=== PATIENT | female | born 1995 | race Caucasian/White ===

== ENCOUNTER 2017-09-19 16:59 | Emergency (ER) | payer MEDICAID, OTHER ==
[2017-09-19 17:04] VITALS: BP 135/87; PULSE 105; RESP 16; TEMP 98.2; O2SAT 100
[2017-09-19] MEDS ORDERED: Sodium Chloride 0.9% 1,000 ML IV STA (18:07)
[2017-09-19 18:45] LABS: ALB/GLOB RATIO 1.2 (1.0-2.1); ALBUMIN 4.3 g/dL (3.5-5.0); ALT/SGPT 42 U/L (9-52); AST/SGOT 41 U/L (14-36); BLOOD UREA NITROGEN 9 mg/dl (7-17); CALCIUM 8.8 mg/dL (8.4-10.2); GFR AFRICAN-AMERICAN > 60; GFR NON-AFRICAN AMERICAN > 60; LIPASE 103 U/L (23-300)
[2017-09-19 18:46] LABS: BASO % 0.4 % (0.0-2.0); EOS # 0.1 K/uL (0.0-0.7); EOS % 1.3 % (0.0-4.0); HEMOGLOBIN 13.6 g/dL (12.0-16.0); LYMPH # 1.4 K/uL (1.0-4.3); MEAN CELL VOLUME 89.1 fl (81.0-99.0); MEAN CORPUSCULAR HEMOGLOBIN 28.9 pg (27.0-31.0); MEAN CORPUSCULAR HGB CONC 32.4 g/dL (33.0-37.0); MEAN PLATELET VOLUME 9.3 fl (7.2-11.7); MONO # 0.5 K/uL (0.0-0.8); MONO % 7.9 % (0.0-10.0); NEUT # 4.3 K/uL (1.8-7.0); NEUT % 67.4 % (50.0-75.0); RBC 4.7 Mil/uL (3.80-5.20); RED CELL DISTRIBUTION WIDTH 13.5 % (11.5-14.5); WHITE BLOOD COUNT 6.3 K/uL (4.8-10.8)
[2017-09-19] MEDS ORDERED: Potassium Chloride 10 mEq ER Tab PO ONE (18:50)
--- NOTE | 2017-09-19 18:52 | ED PDOC ---
HPI: Abdomen Time Seen by Provider: 09/19/17 17:47 Chief Complaint (Nursing): Abdominal Pain Chief Complaint (Provider): adbominal pain History Per: Patient History/Exam Limitations: no limitations Onset/Duration Of Symptoms: Hrs (1hr [employer]) Outside of [place] travel?: No Current Symptoms Are (Timing): Better Associated Symptoms: Nausea, Back Pain. denies: Fever, Chills, Diarrhea, Loss Of Appetite, Chest Pain, Constipation, Urinary Symptoms Last Bowel Movement: Today Past Medical History Reviewed: Historical Data, Nursing Documentation, Vital Signs Vital Signs: Last Vital Signs Temp 98.2 F 09/19/17 17:02 Pulse 105 H 09/19/17 17:02 Resp 16 09/19/17 17:02 BP 135/87 09/19/17 17:02 Pulse Ox 100 09/19/17 18:52 - Medical History PMH: Personality Disorder - Surgical History Surgical History: Appendectomy, Cholecystectomy - Family History Family History: States: Unknown Family Hx - Home Medications Home Medications: Ambulatory Orders Medication Instructions Recorded Ibuprofen [Motrin] 600 mg PO Q6 PRN #15 tab 04/02/16 Famotidine [Pepcid] 20 mg PO BID #16 tab 09/19/17 Ondansetron [Zofran] 4 mg PO Q8H #12 tab 09/19/17 - Allergies Allergies/Adverse Reactions: Allergies Allergy/AdvReac Type Severity Reaction Status Date / Time No Known Allergies Allergy Verified 09/19/17 17:02 Review of Systems ROS Statement: Except As Marked, All Systems Reviewed And Found Negative Gastrointestinal: Positive for: Nausea, Vomiting, Abdominal Pain Physical Exam - Reviewed Nursing Documentation Reviewed: Yes Vital Signs Reviewed: Yes - Physical Exam Appears: Positive for: Non-toxic, No Acute Distress, Uncomfortable Head Exam: Positive for: ATRAUMATIC, NORMAL INSPECTION, NORMOCEPHALIC Skin: Positive for: Normal Color, Warm, DRY Eye Exam: Positive for: Normal appearance, EOMI, PERRL ENT: Positive for: Normal ENT Inspection Neck: Positive for: Normal, Painless ROM Cardiovascular/Chest: Positive for: Regular Rate, Rhythm Respiratory: Positive for: CNT, Normal Breath Sounds Gastrointestinal/Abdominal: Positive for: Bowel Sounds, Soft, Tenderness (mild tenderness noted to epigastric area) Back: Positive for: Normal Inspection Extremity: Positive for: Normal ROM Neurologic/Psych: Positive for: Alert, Oriented - Laboratory Results Result Diagrams: 09/19/17 18:00 09/19/17 18:00 - ECG O2 Sat by Pulse Oximetry: 100 - Progress ED Course And Treament: Pt with hx gallbladder removal. K+ low-Kdur ordered PT will be evaluated : Orders Category Date Time Status COMP METABOLIC PANEL Stat Chem 09/19/17 18:00 Completed LIPASE Stat Chem 09/19/17 18:00 Completed ED Urine (POC) Stat ED Care 09/19/17 18:18 Ordered CBC (WITH DIFFERENTIAL) Stat VITA 09/19/17 18:00 Received Famotidine [Pepcid] Med 09/19/17 18:21 Discontinued 20 mg .ROUTE .STK-MED ONE Famotidine [Pepcid] Med 09/19/17 18:07 Discontinued 20 mg IVP STAT STA Ondansetron [Zofran Inj] Med 09/19/17 18:21 Discontinued 4 mg .ROUTE .STK-MED ONE Ondansetron [Zofran Inj] Med 09/19/17 18:07 Discontinued 4 mg IVP STAT STA Potassium Chloride [Klor-Con 10] Med 09/19/17 18:50 Once 10 meq PO ONCE ONE Sodium Chloride 0.9% 1,000 ml Med 09/19/17 18:07 Active IV 1,000 mls/hr UA [URINALYSIS] Stat URINALYSIS 09/19/17 17:50 Received Medical Decision Making Medical Decision Making: pt with unremarkable labs,. symptoms improved. PT advised to have pmd f.u D/c on zofran and pepcid. Disposition - Clinical Impression Clinical Impression: Gastritis - Patient ED Disposition Is Patient to be Admitted: No Counseled Patient/Family Regarding: Studies Performed, Diagnosis, Need For Followup, Rx Given - Disposition Disposition: Routine/Home Disposition Time: 18:54 Condition: STABLE Prescriptions: Famotidine [Pepcid] 20 mg PO BID #16 tab Ondansetron [Zofran] 4 mg PO Q8H #12 tab Instructions: Gastritis (DC)
[2017-09-19 18:59] LABS: SQUAMOUS EPITHIAL 7 /hpf (0-5); URINE BILIRUBIN NEGATIVE (NEGATIVE); URINE BLOOD NEGATIVE (NEGATIVE); URINE CLARITY CLOUDY (Clear); URINE COLOR YELLOW (YELLOW); URINE GLUCOSE (UA) NEG (Normal); URINE LEUKOCYTE ESTERASE SMALL Leu/uL (Negative); URINE NITRATE NEGATIVE (NEGATIVE); URINE PROTEIN NEGATIVE (NEGATIVE)
== END 2017-09-19 19:10 | disposition home or self-care (01) ==
LOC: H.ER 16:59
DX: K29.70 Gastritis, unspecified, without bleeding (principal)
CPT/HCPCS: 80053; 81003; 81025; 83690; 85025; 96374; 96375; 99284; J2405; J7040

== ENCOUNTER 2018-08-15 16:14 | Emergency (ER) | payer MEDICAID, OTHER ==
[2018-08-15] MEDS ORDERED: Sodium Chloride 0.9% 1,000 ML IV STA (16:53)
--- NOTE | 2018-08-15 16:57 | ED PDOC ---
HPI: Abdomen Time Seen by Provider: 08/15/18 16:41 Chief Complaint (Nursing): Abdominal Pain Chief Complaint (Provider): Lower pelvic pain across History Per: Patient History/Exam Limitations: no limitations Onset/Duration Of Symptoms: Days (today) Additional Complaint(s): Abd pain lower across. Comes and goes. No vaginal bleeding. Has diarrhea occasionally nonbloody. No chest duffy, dyspnea, back pain, dysuria, fever. No nausea or vomit. Missed period for 1 week. Past Medical History Reviewed: Nursing Documentation, Vital Signs Vital Signs: Last Vital Signs Temp 98.7 F 08/15/18 16:41 Pulse 79 08/15/18 16:41 Resp 18 08/15/18 16:41 BP 113/67 08/15/18 16:41 Pulse Ox 100 08/15/18 16:41 - Medical History PMH: No Chronic Diseases - Surgical History Surgical History: Appendectomy, Cholecystectomy - Family History Family History: States: Unknown Family Hx - Living Arrangements Living Arrangements: With Family - Home Medications Home Medications: Ambulatory Orders Medication Instructions Recorded Ibuprofen [Motrin] 600 mg PO Q6 PRN #15 tab 04/02/16 Famotidine [Pepcid] 20 mg PO BID #16 tab 09/19/17 Ondansetron [Zofran] 4 mg PO Q8H #12 tab 09/19/17 - Allergies Allergies/Adverse Reactions: Allergies Allergy/AdvReac Type Severity Reaction Status Date / Time No Known Allergies Allergy Verified 08/15/18 16:38 Review of Systems ROS Statement: Except As Marked, All Systems Reviewed And Found Negative Gastrointestinal: Positive for: Abdominal Pain, Diarrhea Genitourinary Female: Positive for: Pelvic Pain Physical Exam - Reviewed Nursing Documentation Reviewed: Yes Vital Signs Reviewed: Yes - Physical Exam Appears: Positive for: Non-toxic, No Acute Distress Head Exam: Positive for: ATRAUMATIC, NORMAL INSPECTION, NORMOCEPHALIC Skin: Positive for: Normal Color, Warm, DRY Eye Exam: Positive for: EOMI, Normal appearance, PERRL ENT: Positive for: Normal ENT Inspection Neck: Positive for: Normal, Painless ROM Cardiovascular/Chest: Positive for: Regular Rate, Rhythm Respiratory: Positive for: CNT, Normal Breath Sounds Gastrointestinal/Abdominal: Positive for: Soft, Tenderness (mild across lower pelvis) Back: Positive for: Normal Inspection. Negative for: L CVA Tenderness, R CVA Tenderness Extremity: Positive for: Normal ROM Neurologic/Psych: Positive for: Alert, Oriented - Laboratory Results Result Diagrams: 08/15/18 17:12 08/15/18 17:12 Interpretation Of Abn Labs: bhcg elelvated - ECG O2 Sat by Pulse Oximetry: 100 - Progress ED Course And Treament: Five weeks 6 days live intrauterine gestation. Gestational concordance documented. 1908: Stable. AAOx3. Pain free. Tolerated PO. Fu with pcp. Disposition - Clinical Impression Clinical Impression: Abdominal pain during - Patient ED Disposition Is Patient to be Admitted: No Counseled Patient/Family Regarding: Studies Performed, Diagnosis, Need For Followup - Disposition [facility] - [facility]18 Disposition: Routine/Home Disposition Time: 19:10 Condition: STABLE Additional Instructions: Return if not better in 3 days. Instructions: Threatened Miscarriage
[2018-08-15 17:20] LABS: BASO # 0.1 K/uL (0.0-0.2); BASO % 0.7 % (0.0-2.0); EOS # 0.1 K/uL (0.0-0.7); HEMOGLOBIN 12.2 g/dL (12.0-16.0); LYMPH # 1.6 K/uL (1.0-4.3); MEAN CELL VOLUME 90.7 fl (81.0-99.0); MEAN CORPUSCULAR HEMOGLOBIN 30.6 pg (27.0-31.0); MEAN CORPUSCULAR HGB CONC 33.7 g/dL (33.0-37.0); MEAN PLATELET VOLUME 8.4 fl (7.2-11.7); MONO # 0.5 K/uL (0.0-0.8); MONO % 6.4 % (0.0-10.0); NEUT # 5.3 K/uL (1.8-7.0); NEUT % 70.9 % (50.0-75.0); RBC 3.98 Mil/uL (3.80-5.20); RED CELL DISTRIBUTION WIDTH 13.4 % (11.5-14.5); WHITE BLOOD COUNT 7.5 K/uL (4.8-10.8)
[2018-08-15 17:33] LABS: ALB/GLOB RATIO 1.1 (1.0-2.1); ALT/SGPT 30 U/L (9-52); AST/SGOT 24 U/L (14-36); BLOOD UREA NITROGEN 8 mg/dl (7-17); CALCIUM 9.4 mg/dL (8.4-10.2); GFR NON-AFRICAN AMERICAN > 60
--- NOTE | 2018-08-15 18:15 | US ---
Date of service: 08/15/2018 PROCEDURE: First trimester ultrasound HISTORY: and presenting with pain. COMPARISON: None TECHNIQUE: Standard protocol for this study/examination. FINDINGS: LMP: 06/29/2018 Prior examinations from the current : None TECHNIQUE: Real-time 2D imaging, duplex and color Doppler. FINDINGS: Cardiac activity: Present Rate: 111 BPM Measurements: [place] rump length: 0.32 cm Gestational age based on CRL 6 weeks Gestational age 5 weeks 5 days based on gestational sac measurement 1.44 cm Gestational age derived from LMP: 6 weeks 5 days JAIAD based on LMP: 04/05/2019 JAIDA based on biometry: 04/11/2019 Gestational concordance documented. Yolk sac identified Cervix: No Cervical abnormalities: Negative examination for cervical dilatation or effacement. Closed cervix measuring 3.67 cm Subchorionic hemorrhage: None UTERUS: 4.5 x 5.1 x 8.5 cm. Location of fibroid and size: Anterior sub serosal 2.7 x 3.8 x 3.9 cm ADNEXA: Right: 1.8 x 2.9 x 3.1 cm. Simple cyst 1.3 x 1.4 x 1.4 cm normal Doppler arterial waveform documented. Left: 1.6 x 2.8 x 2.7 cm. Normal Doppler arterial waveform documented Fluid in the cul-de-sac: None IMPRESSION: Five weeks 6 days live intrauterine gestation. Gestational concordance documented.
[2018-08-15 19:53] VITALS: BP 115/67; PULSE 82; RESP 16; TEMP 98; O2SAT 98
== END 2018-08-15 19:45 | disposition home or self-care (01) ==
LOC: H.ER 16:14
DX: O26.899 Other specified pregnancy related conditions, unspecified trimester (principal)
CPT/HCPCS: 76817; 80053; 81025; 84702; 85025; 86850; 86900; 99284; J7030